=== PATIENT | female | born 1955 | race Caucasian/White ===

== ENCOUNTER → 2017-07-04 | Day surgery (SDC) | payer OTHER ==
[~2017-07-04] MED LIST: LIDOCAINE 2%/EPI 1:100,000 20 ML VIAL. ONE
--- NOTE | 2017-07-06 13:34 | PATHOLOGY ---
PATHOLOGY REPORT * * * * * * * * FINAL DIAGNOSIS: Skin and subcutaneous tissue, right buttock skin lesion: - Verruca vulgaris, excised. (JPM:magdiel; 07/06/2017) COMMENT: There is no evidence of malignancy. The case is also examined by Dr. Zazueat, dermatopathologist, who concurs with the diagnosis.. (JPM:magdiel; 07/06/2017) REPORT ELECTRONICALLY SIGNED BY: Amando Garcia M.D. DATE/TIME: 07/06/2017 13:33 * * * * * * * * GROSS PATHOLOGY: Received in formalin labeled "Theo Smith, right buttock skin lesion," is a 2.5 x 1.3 x 1.3 cm ellipse of skin displaying a round, slightly raised, pale purple vasquez, granular lesion which measures 0.9 cm. The margins are inked black. The specimen is sectioned into 6 pieces and entirely submitted in cassettes A1 and A2, with the tips placed in cassette A2. (JPM; 07/04/17) INITIAL CPT CODE(S): A; 33542 Professional services performed [place] [facility] [place] [address] Technical services performed by [facility] at [address] [place] [address], [facility] [address], [place] [address]. SPECIMEN(S) RECEIVED: A.Right buttock skin lesion CLINICAL HISTORY: Disorder of skin and subcutaneous tissue PATIENT: THEO SMITH /AGE: 805/25/1955 (Age: 62) PATIENT #: [id number] ALT CASE #: SPECIMEN COLLECTION DATE: 07/04/2017 SPECIMEN RECEIVED DATE: 07/04/2017 [facility] - [address] [place] [address] - PHONE: [phone] * * * END OF REPORT * * *
== END | disposition home or self-care (01) ==
LOC: SURG 07:24
PROVIDERS: ATTEND Surgery
DX: L98.8 Other specified disorders of the skin and subcutaneous tissue (principal); I11.0 Hypertensive heart disease with heart failure; I50.9 Heart failure, unspecified; J45.909 Unspecified asthma, uncomplicated; K21.9 Gastro-esophageal reflux disease without esophagitis; E78.5 Hyperlipidemia, unspecified; J18.0 Bronchopneumonia, unspecified organism; F17.200 Nicotine dependence, unspecified, uncomplicated; Z95.1 Presence of aortocoronary bypass graft; Z90.710 Acquired absence of both cervix and uterus; Z98.890 Other specified postprocedural states; Z72.89 Other problems related to lifestyle
CPT/HCPCS: 11406; 88305

== ENCOUNTER → 2018-05-18 | Outpatient (CLI) | payer BC, OTHER ==
--- NOTE | 2018-05-21 08:08 | RAD ---
Thyroid ultrasound, 05/18/2018: History: Thyroid nodules on outside CT The right lobe of the gland measures 6.0 x 1.7 x 1.6 cm while left lobe of the gland measures 5.6 x 2.3 x 1.8 cm. There are multiple bilateral thyroid nodules. There are at least 5 nodules on the right and 4 on the left. The largest of these lies laterally on the left and measures 2.1 x 1.6 x 1.1 cm. It is predominantly solid and isoechoic to hyperechoic. It is mildly heterogeneous. It contains a least one internal calcification. Its margins are generally smooth. This nodule is considered to be mildly suspicious. The largest nodule on the right lies posteriorly inferiorly and measures 1.4 x 1.0 x 1.2 cm. It is heterogeneous and appears solid. It is slightly hypoechoic. Some of its margins are ill-defined. No internal calcifications are seen. It is mildly to moderately suspicious. There is a smooth 1.5 cm nodule in the upper pole of the left lobe of the gland which appears partially cystic with echogenic foci compatible with inspissated colloid. There is a 1.4 cm solid nodule in the lower pole of the left lobe of the gland with somewhat ill-defined margins. No internal calcifications are seen. There are other scattered bilateral nodules as delineated on the agricultural research technologist worksheet. No highly suspicious thyroid nodule is seen. IMPRESSION: Multinodular thyroid gland with mildly suspicious nodules as described above. Sonographic follow-up is suggested.
== END | disposition home or self-care (01) ==
LOC: US 09:47
PROVIDERS: ATTEND Physician Assistant
DX: E04.2 Nontoxic multinodular goiter (principal); I11.0 Hypertensive heart disease with heart failure; I50.9 Heart failure, unspecified; E78.5 Hyperlipidemia, unspecified; M19.072 Primary osteoarthritis, left ankle and foot; J45.909 Unspecified asthma, uncomplicated; K21.9 Gastro-esophageal reflux disease without esophagitis; Z95.1 Presence of aortocoronary bypass graft; Z90.710 Acquired absence of both cervix and uterus; Z72.89 Other problems related to lifestyle
CPT/HCPCS: 76536

== ENCOUNTER → 2018-07-02 | Outpatient (CLI) | payer BC ==
--- NOTE | 2018-07-02 15:22 | RAD ---
DATE: July 02, 2018 EXAM: DIGITAL SCREEN BILAT W/CAD HISTORY: Screening study. COMPARISON: None currently available. New baseline study. This study was interpreted with the benefit of Computerized Aided Detection (CAD). FINDINGS: Breast Density: SCATTERED The breast parenchyma shows scattered fibroglandular densities. Breast parenchyma level B.. There are no dominant suspicious masses, suspicious microcalcifications or evidence of architectural distortion. IMPRESSION: No mammographic indicators for malignancy. BI-RADS CATEGORY: 1 NEGATIVE RECOMMENDED FOLLOW-UP: 12M 12 MONTH FOLLOW-UP PQRS compliance statement: Patient information was entered into a reminder system with a target due date July 03, 2019 for the next mammogram. Mammography is a sensitive method for finding small breast cancers, but it does not detect them all and is not a substitute for careful clinical examination. A negative mammogram does not negate a clinically suspicious finding and should not result in delay in biopsying a clinically suspicious abnormality. "Our facility is accredited by the [employer] Mammography [employer]." The patient's breast density may affect the ability of mammography to detect breast cancer. There are 4 categories of breast density, A, B, C and D. Breast density A means that most of the breast tissue is replaced with adipose tissue and therefore is not dense. Breast density B means that the breast tissue is mildly dense and scattered. Breast density C means that the breast tissue is heterogeneously dense. Breast density D means that the breast tissue is very dense. Breast densities especially C and D may decrease the sensitivity of mammography to detect breast cancer. Therefore, the patient may benefit from 3-D breast mammography (3D breast tomography) as a part of their screening mammogram. Insurance may or may not pay for this additional imaging. The patient's breast density based on today's mammogram is category B.
== END | disposition home or self-care (01) ==
LOC: MAMMO 10:55
PROVIDERS: ATTEND Physician Assistant Medical
DX: Z12.31 Encounter for screening mammogram for malignant neoplasm of breast (principal); I11.0 Hypertensive heart disease with heart failure; I50.9 Heart failure, unspecified; E78.5 Hyperlipidemia, unspecified; M19.072 Primary osteoarthritis, left ankle and foot; K21.9 Gastro-esophageal reflux disease without esophagitis; Z87.891 Personal history of nicotine dependence; Z90.710 Acquired absence of both cervix and uterus
CPT/HCPCS: 77067

== ENCOUNTER → 2019-07-08 | Outpatient (CLI) | payer BC ==
--- NOTE | 2019-07-08 10:38 | RAD ---
DATE: 07/08/2019 EXAM: DIGITAL SCREEN BILAT W/CAD HISTORY: Routine screening COMPARISON: 07/02/2018 mammographic exam This study was interpreted with the benefit of Computerized Aided Detection (CAD). Breast Density: SCATTERED The breast parenchyma shows scattered fibroglandular densities. Breast parenchyma level B. FINDINGS: No suspicious calcifications, masses, or distortion. IMPRESSION: Stable BI-RADS CATEGORY: 1 NEGATIVE RECOMMENDED FOLLOW-UP: 12M 12 MONTH FOLLOW-UP PQRS compliance statement: Patient information was entered into a reminder system with a target due date in one year for the next mammogram. Mammography is a sensitive method for finding small breast cancers, but it does not detect them all and is not a substitute for careful clinical examination. A negative mammogram does not negate a clinically suspicious finding and should not result in delay in biopsying a clinically suspicious abnormality. "Our facility is accredited by the [employer]amm[employer]."
== END | disposition home or self-care (01) ==
LOC: MAMMO 08:10
PROVIDERS: ATTEND Physician Assistant Medical
DX: Z12.31 Encounter for screening mammogram for malignant neoplasm of breast (principal)
CPT/HCPCS: 77067

== ENCOUNTER → 2019-09-02 | Outpatient (CLI) | payer BC ==
--- NOTE | 2019-09-02 14:20 | RAD ---
SHOULDER 2+V RIGHT 09/02/2019 10:25 AM INDICATION: Right shoulder pain COMPARISON: None available. TECHNIQUE: 3 views the right shoulder are provided. FINDINGS/ IMPRESSION: 1. No acute fracture or dislocation. 2. Suspected a 7 mm ossific body and inferior joint space of the glenohumeral joint. Mild glenohumeral osteoarthrosis. 3. Mild acromioclavicular osteoarthrosis with superiorly projecting marginal osteophytosis. 4. Median sternotomy changes are present. Electronically signed by: Lay Odom MD (09/02/2019 2:17 PM) [id number]
== END | disposition home or self-care (01) ==
LOC: DXRAD 10:08
PROVIDERS: ATTEND Physician Assistant Medical
DX: M19.011 Primary osteoarthritis, right shoulder (principal); Z98.890 Other specified postprocedural states
CPT/HCPCS: 73030